=== PATIENT | male | born 1995 | race African-American/Black ===

== ENCOUNTER 2025-02-04 04:11 | Emergency (ER) | payer BC ==
[~2025-02-04] VITALS: Ht 190.5 cm; Wt 95.3 kg
[~2025-02-04 04:11] MED LIST: HYDR-3974 PO; HYDR-4209 PO; ONDA4TAB5 PO; OXYC-128 PO
[2025-02-04 04:13] VITALS: BP 138/92
[2025-02-04] MEDS ORDERED: PANTOPRAZOLE SODIUM 40 MG VIAL ONE (05:17)
[2025-02-04] MEDS ORDERED: ONDANSETRON 4 MG/2 ML VIAL ONE (05:17)
[2025-02-04] MEDS ORDERED: MORPHINE SULFATE 2 MG/1 ML DISP.SYRIN ONE (05:18)
[2025-02-04 05:23] LABS: PLATELET COUNT (AUTO) 257 K/uL (152-348); RED BLOOD CELL COUNT(AUTO) 5.27 MIL/uL (4.06-5.63); RED CELL DISTRIBUTION WIDTH 13.3 % (12.1-16.2); WHITE BLOOD COUNT (AUTO) 7.9 K/uL (3.6-10.2)
[2025-02-04 05:25] LABS: *BILIRUBIN,URIN 3+ (NEGATIVE); *CLARITY,URINE CLEAR (CLEAR); *KETONES,URINE 4+ (NEGATIVE); *PROTEIN,URINE 2+ (NEGATIVE); *UROBILINOGEN,URINE 1.0 E.U./dl (NORMAL); LEUKOCYTE ESTERASE ,URINE NEGATIVE (NEGATIVE); NITRITE, URINE NEGATIVE (NEGATIVE); UGLUCOSE NEGATIVE (NEGATIVE)
[2025-02-04 05:27] LABS: *BLOOD, URINE TRACE (NEGATIVE); *COLOR,URINE AMBER (YELLOW)
[2025-02-04 05:32] LABS: CREATININE 1.0 mg/dL (0.6-1.3); SODIUM SERUM 140.0 mmol/L (136-145); UREA NITROGEN, BLOOD 8.0 mg/dL (7-18)
[2025-02-04] MEDS: MORPHINE SULFATE 2 MG/1 ML DISP.SYRIN IV ONE (05:34)
[2025-02-04] MEDS: PANTOPRAZOLE SODIUM IV 40 MG in IV DEXTROSE 5% 100 ML IV ONE (05:34)
[2025-02-04] MEDS: ONDANSETRON 4 MG/2 ML VIAL IV ONE (05:34)
[2025-02-04 05:37] LABS: ETHANOL < 3 MG/DL (0-10)
[2025-02-04 05:38] LABS: ASPARTATE AMINOTRANSFERASE 17.0 U/L (15-37); TOTAL PROTEIN, SERUM 7.9 g/dL (6.4-8.2)
[2025-02-04 05:40] LABS: *AMPHETAMINE, URINE NEGATIVE (NEGATIVE); *BARBITURATE, URINE NEGATIVE (NEGATIVE); *BENZODIAZEPINE, URINE NEGATIVE (NEGATIVE); *CANNABINOID, URINE POSITIVE (NEGATIVE); *COCCAINE, URINE NEGATIVE (NEGATIVE); *OPIATE, URINE NEGATIVE (NEGATIVE); *PHENCYCLIDINE SCREEN,URINE NEGATIVE (NEGATIVE); FENTANYL, URINE NEGATIVE (NEGATIVE)
[2025-02-04 05:44] LABS: CALCIUM OXALATE CRYSTALS,UR RARE /HPF (NONE SEEN); SQUAMOUS EPITHELIAL CELL,UR FEW /HPF (NONE SEEN)
[2025-02-04] MEDS ORDERED: POTASSIUM CHLORIDE 20 MEQ TAB.PRT.SR ONE (06:05)
[2025-02-04] MEDS: POTASSIUM CHLORIDE 20 MEQ TAB.PRT.SR PO ONE (06:08)
[2025-02-04] MEDS ORDERED: SULF1TAB48 PO (06:41)
[2025-02-04] MEDS ORDERED: ONDA4TAB5 PO (06:41)
[2025-02-04 07:04] VITALS: BP 138/92; TEMP 98; O2SAT 96
== END 2025-02-04 07:05 | disposition home or self-care (01) ==
LOC: ER 04:19
DX: R11.2 Nausea with vomiting, unspecified (principal); Z88.7 Allergy status to serum and vaccine
CPT/HCPCS: 80053; 81001; 83690; 85025; 87086; 36415; 74176; 99285; 96365; 96375; 80320; 80307; J2405; J2470 ×2; J2270; A4606; A4663; G0480